=== PATIENT | male | born 1950 | race Caucasian/White ===

== ENCOUNTER 2024-09-02 08:42 | Emergency (ER) | payer MEDICARE ==
[~2024-09-02] VITALS: Ht 182.9 cm; Wt 79.6 kg
[~2024-09-02 08:42] MED LIST: ASPI81CH33 PO; BREO1INH PO; COLA100C5 PO; FINA5TAB2 PO; INCR1INH INH; MAGN400T33 PO; PANT40TA29 PO; SPIR12.9 INH; SYMB16INH INH; TAMS-18 PO; VENTAER INH
[2024-09-02] MEDS ORDERED: PANT40TA29 PO ×2 (09:00→12:20)
[2024-09-02] MEDS ORDERED: TAMS-18 PO (12:20)
[2024-09-02] MEDS ORDERED: FINA5TAB2 PO (12:20)
[2024-09-02 12:48] VITALS: BP 151/70; TEMP 98; O2SAT 97
[2024-09-02 12:50] LABS: KETONE, URINE AUTO RFX NEGATIVE (NEGATIVE); MUCUS, URINE RFX SMALL (NEGATIVE); NITRITE, URINE AUTO RFX NEGATIVE (NEGATIVE); RBC, URINE AUTO RFX 1 /HPF (0-3); SQUAM EPITHELIAL CELL UR AURFX 0 /HPF (0-6); WBC, URINE AUTO RFX 4 /HPF (0-3)
[2024-09-02 12:51] LABS: LEUKOCYTE ESTERASE UR AUTO RFX 1+ (NEGATIVE)
== END 2024-09-02 13:19 | disposition home or self-care (01) ==
LOC: M ED 08:42
DX: Z76.0 Encounter for issue of repeat prescription (principal); N40.0 Benign prostatic hyperplasia without lower urinary tract symptoms; K21.9 Gastro-esophageal reflux disease without esophagitis; J44.9 Chronic obstructive pulmonary disease, unspecified; F10.21 Alcohol dependence, in remission; F17.200 Nicotine dependence, unspecified, uncomplicated; Z79.899 Other long term (current) drug therapy

== ENCOUNTER 2024-10-22 08:19 | Observation (INO) | payer MEDICARE ==
[~2024-10-22] VITALS: Ht 182.9 cm; Wt 80.8 kg
[2024-10-22] VITALS (10 sets, daily range): BP systolic 83–155; BP diastolic 47–69; TEMP 97.9–99.2; O2SAT 94–100
[2024-10-22] MEDS: DERMABOND TOPICAL SKIN ADHESIVE TOP ONE (09:06)
[2024-10-22] MEDS: TETANUS/DIPHTH/ACEL. PERTUSSIS 0.5 ML SYR IM.IMMUN ONE (09:07)
[2024-10-22] MEDS ORDERED: LOPE2TAB12 PO (09:19)
[2024-10-22] MEDS ORDERED: DULO1CAP5 PO (09:19)
[2024-10-22] MEDS ORDERED: GABA-1171 PO (09:19)
[2024-10-22] MEDS ORDERED: FINA5TAB2 PO (09:19)
[2024-10-22] MEDS ORDERED: TAMS1CAP17 PO (09:19)
[2024-10-22] MEDS ORDERED: VENTAER INH (09:19)
[2024-10-22] MEDS ORDERED: HOME MED LIST COMPLETE! XX SCH (09:20)
[2024-10-22 09:40] LABS: BASO # 0.1 10^3/uL (0.0-0.2); BASO % 1.3 % (0.0-1.0); EOS # 0.6 10^3/uL (0.0-0.5); EOS % 7.7 % (0.0-3.0); LYMPH # 1.9 10^3/uL (1.5-5.0); LYMPH % 22.5 % (24.0-44.0); MONO # 0.6 10^3/uL (0.0-0.8); MONO % 6.7 % (2.0-8.0); NEUTROPHILS # 5.1 10^3/uL (1.5-8.5); NEUTROPHILS % 61.3 % (36.0-66.0); PLATELET COUNT, AUTOMATED 215 10^3/uL (150-450)
[2024-10-22 09:57] LABS: INR 0.96
[2024-10-22 09:59] LABS: ALT/SGPT 17.0 U/L (7.0-40); AST/SGOT 22.0 U/L (<34); CALCIUM LEVEL 9.5 MG/DL (8.3-10.6); CARBON DIOXIDE LEVEL 28.0 MMOL/L (20-31); CHLORIDE LEVEL 106.0 MMOL/L (98-107); CREATININE FOR GFR 0.96 MG/DL (0.70-1.30); GLOMERULAR FILTRATION RATE 83.5 (>42); POTASSIUM SERUM 4.6 MMOL/L (3.5-5.1); SODIUM LEVEL 144.0 MMOL/L (136-145)
[2024-10-22] MEDS ORDERED: ALBUTEROL 90 MCG/ACT 8 GM HFA INHALER INH PRN (11:45)
[2024-10-22 12:54] LABS: CALCIUM LEVEL 8.6 MG/DL (8.3-10.6); CARBON DIOXIDE LEVEL 26 MMOL/L (20-31); CHLORIDE LEVEL 107 MMOL/L (98-107); CREATININE FOR GFR 0.84 MG/DL (0.70-1.30); GLOMERULAR FILTRATION RATE > 90.0 (>42); POTASSIUM SERUM 4.3 MMOL/L (3.5-5.1); SODIUM LEVEL 142 MMOL/L (136-145)
[2024-10-22] MEDS: LIDOCAINE 5% PATCH TD ONE (13:35)
[2024-10-22] MEDS: IPRATROPIUM 0.5 MG/ALBUTEROL 2.5 MG INH SOL UD 3 ML NEB SCH (16:53)
[2024-10-22] MEDS: ACETAMINOPHEN 325 MG TAB PO PRN (17:17)
[2024-10-22] MEDS: LIDOCAINE 5% PATCH TD SCH (21:13)
[2024-10-22] MEDS: GABAPENTIN 100 MG CAP PO SCH (21:13)
[2024-10-22] MEDS: ACETAMINOPHEN *IV* 1,000 MG in IV 1 EA IV ONE (21:13)
[2024-10-23] VITALS (33 sets, daily range): BP systolic 101–170; BP diastolic 53–86; TEMP 97.8–98.2; O2SAT 93–100
[2024-10-23 01:08] LABS: CK-MB VALUE MASS 1.6 NG/ML (<3.6)
[2024-10-23 01:11] LABS: FREE T4 1.09 NG/DL (0.89-1.76)
[2024-10-23 01:12] LABS: ALT/SGPT 11.0 U/L (7.0-40); AST/SGOT 16.0 U/L (<34); CALCIUM LEVEL 9.0 MG/DL (8.3-10.6); CARBON DIOXIDE LEVEL 26.0 MMOL/L (20-31); CHLORIDE LEVEL 108.0 MMOL/L (98-107); CPK CREATINE PHOSPHOKINASE 28.0 U/L (46-171); CREATININE FOR GFR 1.01 MG/DL (0.70-1.30); GLOMERULAR FILTRATION RATE 78.5 (>42); MAGNESIUM LEVEL 1.8 MG/DL (1.8-2.4); MB/CK RELATIVE INDEX 5.71 (< OR =4); POTASSIUM SERUM 4.3 MMOL/L (3.5-5.1); SODIUM LEVEL 143.0 MMOL/L (136-145)
[2024-10-23] MEDS: MAG SULF 1GM/100ML (MAG RUN) 1 GM in IV 1 EA IV ONE (01:48)
[2024-10-23] MEDS ORDERED: ATROPINE SULF 1 MG/10 ML SYRINGE As Ordered ONE (02:56)
[2024-10-23 04:11] LABS: PLATELET COUNT, AUTOMATED 197 10^3/uL (150-450)
[2024-10-23 04:29] LABS: CK-MB VALUE MASS 1.5 NG/ML (<3.6)
[2024-10-23 04:33] LABS: ALT/SGPT 12.0 U/L (7.0-40); AST/SGOT 17.0 U/L (<34); CALCIUM LEVEL 9.1 MG/DL (8.3-10.6); CARBON DIOXIDE LEVEL 26.0 MMOL/L (20-31); CHLORIDE LEVEL 108.0 MMOL/L (98-107); CREATININE FOR GFR 0.97 MG/DL (0.70-1.30); GLOMERULAR FILTRATION RATE 82.4 (>42); POTASSIUM SERUM 4.3 MMOL/L (3.5-5.1); SODIUM LEVEL 143.0 MMOL/L (136-145)
[2024-10-23 04:37] LABS: CPK CREATINE PHOSPHOKINASE 34.0 U/L (46-171); MB/CK RELATIVE INDEX 4.41 (< OR =4)
[2024-10-23] MEDS: DOBUTamine HCL 500,000 MCG in IV 1 EA IV SCH (07:40)
[2024-10-23] MEDS ORDERED: DOBUTamine 500 MG/250 ML BAG IN D5W (2,000 MCG/ML) As Ordered ONE (07:40)
[2024-10-23] MEDS ORDERED: ATROPINE SULF 1 MG/10 ML SYRINGE IV PRN (08:00)
[2024-10-23] MEDS: TIOTROPIUM BROM 2.5MCG/ACTUATION 4GM INH INH SCH (08:10)
[2024-10-23] MEDS ORDERED: PANTOPRAZOLE 40MG TAB PO SCH (09:00)
[2024-10-23] MEDS ORDERED: FINASTERIDE 5 MG TAB PO SCH (09:00)
[2024-10-23] MEDS ORDERED: TAMSULOSIN 0.4 MG CAP PO SCH (09:00)
== END 2024-10-23 09:02 | disposition short-term general hospital (02) ==
LOC: EDBD 08:19 → M ED 08:19 → M ED INP 08:20 → M MSPAV 14:33 → M ED INP 14:33 → M MSPAV 15:29 → M ICU 16:24
PROVIDERS: ADMIT Student in an Organized Health Care Education/Training Program; ATTEND Student in an Organized Health Care Education/Training Program
DX: I44.1 Atrioventricular block, second degree (principal); W19.XXXA Unspecified fall, initial encounter; R00.1 Bradycardia, unspecified; R55 Syncope and collapse; S06.5X0D Traumatic subdural hemorrhage without loss of consciousness, subsequent encounter; R26.81 Unsteadiness on feet; C34.11 Malignant neoplasm of upper lobe, right bronchus or lung; J44.9 Chronic obstructive pulmonary disease, unspecified; I10 Essential (primary) hypertension; M54.50 Low back pain, unspecified; J95.811 Postprocedural pneumothorax; F17.210 Nicotine dependence, cigarettes, uncomplicated; F10.11 Alcohol abuse, in remission; N40.0 Benign prostatic hyperplasia without lower urinary tract symptoms; K21.9 Gastro-esophageal reflux disease without esophagitis; Z79.899 Other long term (current) drug therapy
CPT/HCPCS: 36415; 70450; 71045; 72080; 72125; 80048; 80053; 82550; 82553; 83735; 84439; 84443; 84484; 85025; 85027; 85610; 90471; 90715; 93005; 93041; 94640; 94760; 96365; 96375; 99285; G0378; J0131; J1250; J3475